=== PATIENT | female | born 1985 | race Native Hawaiian/Other Pacific Islander ===

== ENCOUNTER 2016-04-26 20:18 | Emergency (ER) | payer OTHER ==
[~2016-04-26] VITALS: Ht 162.6 cm; Wt 68.0 kg
[2016-04-26 21:15] LABS: PLATELET COUNT 54 K/uL (152-353)
[2016-04-26 21:25] LABS: POTASSIUM 4.7 mmol/L (3.6-5.2); SODIUM 134 mmol/L (136-145)
[2016-04-26 22:12] VITALS: BP 143/86; TEMP 98.3
== END 2016-04-26 22:22 | disposition home or self-care (01) ==
LOC: ED 20:18
DX: K52.89 Other specified noninfective gastroenteritis and colitis (principal)
CPT/HCPCS: 36415; 80053; 85027; 96360; 99283

== ENCOUNTER 2021-02-11 08:50 | Emergency (ER) | payer OTHER ==
[~2021-02-11] VITALS: Ht 157.5 cm; Wt 63.5 kg
[2021-02-11 09:00] VITALS: TEMP 97.7
[2021-02-11 09:22] LABS: PLATELET COUNT 262 K/uL (152-353)
[2021-02-11 09:30] LABS: POTASSIUM 4.3 mmol/L (3.6-5.2)
[2021-02-11 10:53] VITALS: BP 118/78
== END 2021-02-11 10:53 | disposition home or self-care (01) ==
LOC: ED 08:50
PROVIDERS: Family Medicine
DX: K80.20 Calculus of gallbladder without cholecystitis without obstruction (principal)
CPT/HCPCS: 80053; 81000; 85027; 96374; 96375; 99284; J1885; J2405; Q9963